=== PATIENT | male | born 1965 | race Caucasian/White ===

== ENCOUNTER 2021-01-15 06:32 | Observation (INO) ==
--- NOTE | 2020-12-18 13:22 | PAT Medication Instructions ---
Medication Instructions Date of Service December 18, 2020 Home Medications Medication Instructions Recorded 3-in-1 Commode #1 ea 12/14/20 Wheeled Walker #1 ea 12/14/20 atorvastatin 40 mg tablet 40 mg PO QAM ibuprofen 200 mg capsule 1,200 mg PO QAM linagliptin 5 mg tablet 5 mg PO QAM lisinopril 10 mg tablet 10 mg PO QAM omeprazole 20 mg capsule,delayed release 20 mg PO DAILY PRN ASK your surgeon for instructions ibuprofen 200 mg capsule 1,200 mg PO QAM DO NOT take the morning of surgery linagliptin 5 mg tablet 5 mg PO QAM lisinopril 10 mg tablet 10 mg PO QAM Take morning of surgery With a small sip of water, OTHERWISE NOTHING TO EAT OR DRINK AFTER MIDNIGHT: atorvastatin 40 mg tablet 40 mg PO QAM omeprazole 20 mg capsule,delayed release 20 mg PO DAILY PRN (if needed) Other Notes If you have any questions please call us at [phone] or [phone] or [phone] or [phone]
--- NOTE | 2020-12-22 15:30 | Anesthesiology Consultation ---
Date of Service December 22, 2020 Assessment & Plan (1) Encounter for pre-operative examination: COVID Status: As of 12/22 assessment, patient denies travel to endemic area, known exposure/sick contacts, or symptoms of COVID19. Patient instructed that they and their household members must follow strict social distancing guidelines, wear a mask in public and avoid travel/events/gatherings for 14 days prior to surgery. Preoperative COVID19 testing to be completed prior to surgery per surgeon's arrangements (01/11). Patient made aware to self-isolate as much as possible between COVID testing and surgery. Patient states he is currently scheduled to work at his job between his Covid test and his surgery. He works indoors and outside with a variety of people and often he and others are not wearing masks. Also will ride in vehicles with coworkers without masks. Patient was encouraged to be off of work in order to be able to isolate properly after having his Covid test. He states he will probably be able to take PTO for that week and will try to arrange this. Advised patient that if he is unable to be off of work he needs to strictly mask and avoid contact with others when at all possible. MDA be advised AM DOS of above possible increased covid risk. Chart Review Chart Review: Acceptable Risk for Surgery and Patient seen in Pre Admission Testing Teaching & Discussion Instructed NPO after midnight before surgery, except medications with 15 cc of water. Medication instructions provided according to the PAT guidelines. History Surgery Operation Date: 01/15/21 11:10 Proposed Procedures p Right Total Hip Arthroplasty - Lenin Perez MD Height/Weight Height: 5 ft 5 in Weight: 88.4 kg Allergies Allergy/AdvReac Type Severity Reaction Status Date / Time No Known Allergies Allergy Verified 12/17/20 15:37 Medications Home Medications Medication Instructions Recorded Confirmed Last Taken 3-in-1 Commode #1 ea 12/14/20 12/14/20 Unknown Wheeled Walker #1 ea 12/14/20 12/14/20 Unknown atorvastatin 40 mg tablet 40 mg PO QAM 12/14/20 12/17/20 Unknown ibuprofen 200 mg capsule 1,200 mg PO QAM 12/14/20 12/17/20 Unknown linagliptin 5 mg tablet 5 mg PO QAM 12/14/20 12/17/20 Unknown lisinopril 10 mg tablet 10 mg PO QAM 12/14/20 12/17/20 Unknown omeprazole 20 mg capsule,delayed 20 mg PO DAILY PRN 12/14/20 12/17/20 Unknown release Past Medical History Medical History Arthritis of right hip Diabetes well controlled. GERD (gastroesophageal reflux disease) Controlled with PPI High cholesterol Hypertension Exercise / Class Metabolic Activity III < 4 Walking/Shop/Light housework Past Family History Family History Father Family history of diabetes mellitus Past Surgical History Surgical History History of appendectomy AGE 11 Past Anesthesia History No Hx of Anesthesia Complications and No Family Hx of Anesthesia Complications History of PONV No Hx of PONV and No Hx of Motion Sickness Social History Smoking Status: Never smoker Do You Dip or Chew Tobacco: Yes (1 CAN PER 2 DAYS -- PT MADE AWARE NO CHEW AM DOS) Hx Alcohol Use: Yes Alcohol type: beer alcohol intake frequency: 3 or more drinks per day (lately has been 6 beers in evenings due to pain) Hx Substance Use: No Review of Systems Pt denies any recent chest pain, shortness of breath, palpitations, cough, fever, URI, or uncontrolled acid reflux. Physical Exam Vital Signs BP: 129/83 P: 87bpm SPO2: 98% RA T: 98.2 F R: 16 ENMT Mouth: + chipped teeth; no dental restorations and no loose teeth Thyromental Distance: < 3.5 Finger Breadths (3) Mallampati Class: II Neck neck extension not limited Respiratory normal respiratory effort, lungs clear to auscultation Cardiovascular RRR, no murmur, no edema Testing Laboratory Results 12/22/20 15:45 12/22/20 15:45 PT 10.6 Seconds (9.0-12.0) 12/22/20 15:45 INR 1.0 (0.9-1.1) 12/22/20 15:45 APTT 24.5 Seconds (21.0-31.0) 12/22/20 15:45 Electrocardiogram Date: 12/22/20 Findings: + NSR @ (69bpm) Chest X-Ray Date: 12/22/20 Findings: + NAD
--- NOTE | 2020-12-22 16:06 | XRay Report ---
XR chest Pre-admission PA/Lat HISTORY: 55 years-old Male pat preoperative exam. No acute chest complaints COMPARISON: None TECHNIQUE: PA and lateral views of the chest FINDINGS: Cardiomediastinal and hilar silhouettes are within normal limits. No pneumothorax, pleural effusion, airspace consolidation or overt pulmonary edema. Spondylitic spurring of the spine. IMPRESSION: No acute process. ACT 112: Negative or not required by law. The above report was generated using voice recognition software. It may contain grammatical, syntax o r spelling errors. Electronically signed by: Dwight Abbasi M.D. 12/22/2020 4:05 PM
[2020-12-22 16:23] LABS: Basophils # (auto) 0.02 K/uL (0-0.2); Basophils % (auto) 0.3 %; Eosinophils # (auto) 0.05 K/uL (0-0.5); Eosinophils % (auto) 0.7 %; Hematocrit (blood only) 44.4 % (42-52); Hemoglobin 15.8 g/dL (14.0-18.0); Immature Granulocytes # (auto) 0.02 K/uL (0.00-0.02); Immature Granulocytes % (auto) 0.3 %; Lymphocytes # (auto) 2.17 K/uL (1.2-3.4); Lymphocytes % (auto) 28.4 %; Mean Corpuscular Hemoglobin 31.7 pg (25-34); Mean Corpuscular Hgb Conc 35.6 g/dL (32-36); Mean Corpuscular Volume 89.2 fL (80-100); Mean Platelet Volume 10.4 fL (7.4-10.4); Monocytes # (auto) 0.65 K/uL (0.11-0.59); Monocytes % (auto) 8.5 %; Neutrophils # (auto) 4.73 K/uL (1.4-6.5); Neutrophils % (auto) 61.8 %; Platelet Count 205 K/uL (130-400); RDW Coefficient of Variation 12.8 % (11.5-14.5); RDW Standard Deviation 41.7 fL (36.4-46.3); Red Blood Count 4.98 M/uL (4.7-6.1); White Blood Count 7.64 K/uL (4.8-10.8)
[2020-12-22 16:57] LABS: Partial Thromboplastin Ratio 0.9; Partial Thromboplastin Time 24.5 Seconds (21.0-31.0); Prothrombin Time 10.6 Seconds (9.0-12.0)
--- NOTE | 2020-12-22 16:57 | Electrocardiogram Report ---
Test Reason : Blood Pressure : / mmHG Vent. Rate : 069 BPM Atrial Rate : 069 BPM P-R Int : 162 ms QRS Dur : 082 ms QT Int : 392 ms P-R-T Axes : 050 007 -03 degrees QTc Int : 420 ms Normal sinus rhythm Normal ECG No previous ECGs available Confirmed by Giovany Rivas ([id number]) on 12/22/2020 4:57:01 PM Referred By: Lenin Perez Confirmed By:James Rivas
[2020-12-22 16:59] LABS: BUN Creatinine Ratio 22.8 (10-20); Calcium 9.1 mg/dl (8.5-10.1); Creatinine Clr Calc Pharmacy 101.6 ml/min; Est GFR (Non-African American) 98.4; Potassium 4.4 mmol/L (3.5-5.1)
--- NOTE | 2021-01-09 11:50 | History and Physical Report ---
DATE OF ADMISSION: 01/15/2021 CHIEF COMPLAINT: Right hip pain. HISTORY OF PRESENT ILLNESS: The patient is a 55-year-old gentleman who works in [employer] who presents for surgical treatment of his right hip. He has about a 2-3 year history of significantly increasing right hip pain and discomfort. He has been through extensive conservative treatment in the past, mostly consists of medicine dose. This has become less successful. He has been through a course of therapy, which did not help at all and if anything made things worse. He takes medicines with minimal relief. 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 By midday, he has difficulty walking at all. He would like to have his hip replaced. PAST MEDICAL HISTORY: 1. Diabetes. 2. Hypertension. 3. Elevated cholesterol. 4. Gastroesophageal reflux disease. PAST SURGICAL HISTORY: Include appendectomy. ALLERGIES: None. CURRENT MEDICINES: 1. Lisinopril 10 mg. 2. Tradjenta 5 mg a day. 3. Atorvastatin 40 mg. 4. Prilosec 20 mg. 5. Ibuprofen 6 pills a day. SOCIAL HISTORY: Significant for 55-year-old male. He is from [facility]. He is . One drink per week. He does chew snuff. He works [employer]. FAMILY HISTORY: Significant for diabetes. REVIEW OF SYSTEMS: Significant for diabetes. Denies any chest pain or shortness of breath. No history of DVT or PE. No known bleeding problems. PHYSICAL EXAMINATION GENERAL: Shows a pleasant, healthy appearing, middle-aged male. HEENT: Benign. NECK: Supple, no lymphadenopathy. LUNGS: Clear to auscultation. HEART: Has a regular rate and rhythm. ABDOMEN: Soft, nontender, nondistended. EXTREMITIES: Grossly neurovascularly intact except as follows. Examination of the right hip reveals the patient walks with markedly antalgic gait. He limps on this right side. He is about 0.5 cm short on the right side compared to left. He has a very stiff hip with internal rotation of -10. This recreates his pain. No knee effusion. Negative straight leg raise. X-RAYS: X-rays of the right hip were reviewed. It shows advanced right hip DJD. He has complete loss of the superior joint space. He has got [id number] disease. He has got Cam type impingement. He has got osteophytes around the acetabulum. He has got cystic and flattening changes of the femoral head. 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 He has failed conservative treatment and would like to have his right hip replaced. PLAN: We will take him to the operating room and do a right total hip replacement. The risks and benefits of this procedure were explained to the patient including but not limited to DVT, PE, , infection, neurological injury, vascular injury, bleeding problem, pain, limited range of motion, stiffness, failure to relieve symptoms, incomplete relief of symptoms, need for further surgery in future, fracture, leg length inequality, nerve palsy, and need for revision surgery. He is aware that at his young age, he may need this revised at some point in the future. We talked about holding his ibuprofen 10 days preop. He is planning to be discharged to home with [facility] program.
[~2021-01-15 06:32] MED LIST: ACETAMINOPHEN 500 MG TAB PO SCH; FAMOTIDINE 20 MG TAB PO SCH; GABAPENTIN 600 MG DOSE PO SCH; LR 500ML BOLUS, THEN 15ML/HR IV SCH; LR 60ML/HR IV SCH; METOCLOPRAMIDE HCL 10 MG TABLET PO SCH; Scopolamine 1 MG TDSY TD SCH; TRANEXAMIC ACID 1,000 MG **IV Pre-op IV SCH; ceFAZolin 2000MG 2,000 MG/15 ML SYR IV SCH
[2021-01-15] MEDS ORDERED: MIDAZOLAM HCL 1 MG/ML 2ML VIAL ONE ×2 (06:43→09:16)
[2021-01-15] MEDS ORDERED: fentaNYL citrate 100 MCG/2 ML VIAL ONE (06:43)
[2021-01-15] MEDS ORDERED: MoRPHine SULFATE PF 1 MG/ML 10 ML AMP/VIAL ONE (06:44)
--- NOTE | 2021-01-15 06:56 | History & Physical Bridge Note ---
Date of Service January 15, 2021 History & Physical Bridge Note I have examined the patient, reviewed the History & Physical and in the interval since the performance of the History & Physical I have noted the following changes of clinical significance: no changes noted
[2021-01-15] MEDS ORDERED: BUPIVACAINE 0.5 % 5 MG/1 ML PF 10ML VIAL ONE (07:29)
[2021-01-15] MEDS ORDERED: BUPIVACAINE/EPINEPHRINE 0.5% MPF 1:200,000 30 ML VIAL ONE (08:47)
[2021-01-15] MEDS ORDERED: BACITRACIN INJ 50,000 UNIT VIAL ONE (08:47)
[2021-01-15] MEDS ORDERED: NALOXONE HCL 0.4 MG/1 ML VIAL/CARP IV PRN ×2 (09:03→11:24)
[2021-01-15] MEDS ORDERED: diphenhydrAMINE 50 MG/ML VIAL IV PRN (09:03)
[2021-01-15] MEDS ORDERED: MEPERIDINE HCL 25 MG/ML CARP/VIAL IV PRN (09:03)
[2021-01-15] MEDS ORDERED: NALOXONE HCL 0.08 MG in SYRINGE 1.8 ML IV PRN (09:03)
[2021-01-15] MEDS ORDERED: NALOXONE HCL 1 MG in SODIUM CHLORIDE 0.9% 1000ML 1,000 ML IV PRN (09:03)
[2021-01-15] MEDS ORDERED: LACTATED RINGER'S 500 ML IV PRN (09:03)
[2021-01-15] MEDS ORDERED: KETOROLAC 30 MG/ML VIAL IV PRN (09:03)
[2021-01-15] MEDS ORDERED: MoRPHine SULFATE PF 1 MG/ML 10 ML AMP/VIAL INT SPINAL ONE (09:03)
[2021-01-15] MEDS ORDERED: ePHEDrine sulfate 50 MG/ML AMP IV PRN (09:03)
[2021-01-15] MEDS ORDERED: MoRPHine SULFATE 2 MG/ML CARP IV PRN (09:03)
[2021-01-15] MEDS ORDERED: HYDROmorphone INJ 0.5 MG/0.5 ML SYR IV PRN ×2 (09:03→11:24)
[2021-01-15] MEDS ORDERED: SODIUM CHLORIDE 0.9% 1000ML 1,000 ML IV SCH (09:15)
[2021-01-15] MEDS ORDERED: NO NARCOTICS OR SEDATIVES SCH (09:15)
[2021-01-15] MEDS ORDERED: PROPOFOL IV EMULSION 10 MG/ML 20 ML VIAL IV ONE (09:16)
[2021-01-15] MEDS ORDERED: ONDANSETRON INJ 2 MG/ML 2 ML VIAL ONE (09:16)
[2021-01-15] MEDS ORDERED: PHENYLEPHRINE 100MCG/ML 5ML SYR ONE (09:45)
[2021-01-15] MEDS ORDERED: PHENYLEPHRINE HCL 10 MG/ML VIAL ONE (09:45)
[2021-01-15] MEDS ORDERED: ePHEDrine sulfate 50 MG/ML SYR ONE (10:08)
--- NOTE | 2021-01-15 10:47 | Operative Report ---
Post Operative Report Pre & Post Diagnosis Operation Date: 01/15/21 08:50 Pre-Op Diagnosis: Right Hip Degenerative Joint Disease Post-Op Diagnosis: Right Hip Degenerative Joint Disease I identified the patient and participated in the time-out.: Yes Procedure Operation Date: 01/15/21 08:50 Actual Procedures p Right Total Hip Arthroplasty(Right) - Lenin Perez MD Surgeon Lenin Perez MD Field Hockey Coach MIKE Barcenas Estimated Blood Loss 200 Findings Consistent with Post-Op Diagnosis Operative findings were advanced right hip DJD. Extensive grade 4 bone and deep bone disease the femoral head and acetabulum. He had a large medial acetabular osteophyte. He did have some anterior acetabular wall deficiency. Moderate- sized joint effusion. Very stiff hip with an external rotation contracture of 10 degrees or so. Fluids 1200 cc Specimens Right femoral head sent for pathology. Drains None. 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 Became pretty incapacitating is having difficulty in the get through his workday due to pain. X-rays were advanced right hip arthritis. He failed all conservative measures and elected proceed with total hip arthroplasty. Description of Procedure Operative implants consisted of: 1 Biomet G7 size 56 mm acetabular shell. 2. [place] hole dyehouse worker. 3. 6.5 cancellous acetabular screws 1 of 35 mm length 125 mm length. 4. Highly cross-linked polyethylene liner with a 56 mm outer diameter 36 mm diameter. 5. DePuy Corail size 10 KLA femoral stem. 6. +5/36 mm ceramic articular ball. The patient was taken to the operating identified and placed on the operating table supine position but all contact areas were properly padded. IV antibiotics tried by anesthesia team.Navarrete catheter was placed in sterile fashion. A spinal anesthetic had been implemented holding area. The patient was then placed in the left lateral decubitus position. An axillary roll was placed. A Stulberg hip positioner was used for positioning. All contact areas were meticulously padded and the right hip and leg were then prepped and draped in usual sterile fashion. A posterior lateral approach of the right hip was then performed to a curvilinear incision centered over the greater trochanter. Sharp dissection was got through subcutaneous tissue down to level the IT band gluteal fascia the IT band gluteal fascia incised longitudinally in line with skin incision. The underlying greater bursa was excised. The piriformis and external rotators were tagged and taken off the posterior aspect hip joint capsule. Great care was taken throughout the procedure to protect the sciatic nerve at all times. Posterior capsulotomy was then performed leaving a large flap for later repair. Hip was internally rotated and dislocated. A femoral neck osteotomy cut was made with Final Cut 10 mm above the lesser trochanter. Femoral head was removed and sent for pathology. The femur was retracted anteriorly. Attention drawn the acetabulum. The acetabular labrum was excised. The pulmonary fat was excised. He had a fairly large medial osteophyte which I had to remove in order to assess the depth of the acetabulum. I then began reaming up with a 45 mm reamer progressing up to a 55. I did reamed a little bit with a 56 reamer. A 56 mm Biomet acetabular shell was then placed in about 40 degrees lateral opening and 20 degrees of anteversion. Was fixed with two 6.5 cancellous acetabular screws. Trial liner was placed. Attention drawn the femur. The proximal femur was entered with a cookie-cutter followed by canal finder. I then broached begin the size 8 and progressing up to 10. He had excellent cancellous envelope and was fairly tight. We elect to stop there. Calcar reamer was used smooth and off the calcar. I then trialed the hip. The +5/36 mm articular ball provide full stability in full extension and external rotation and flexion to 9 degrees internal rotation over 50 degrees. Leg lengths seemed appropriate. Soft tissue tension seemed appropriate. I elect to place these implants. All trial implants were removed. An apex hole dyehouse worker was placed. Highly cross-linked polyethylene liner was placed. A DePuy size 10 KLA femoral stem was impacted in position. +5/36 mm ceramic articular ball was placed. Hip was located once again found to be stable. Attention drawn toward closing. The wounds irrigated scope soft pulsatile lavage solution. I did inject locally with 60 cc of absent Marcaine with epinephrine. Patient did receive 1 g tranexamic acid. The wounds once again irrigated. Posterior capsule and external rotators were then repaired through drill holes in the posterior trochanter with #2 Tycron suture. The IT band gluteal fascia then closed in 1 PDS suture in running fashion for the subcutaneous tissues were closed with 2 layers with a deep layer #1 Vicryl suture and subcutaneous tissues with 2-0 Dexon suture in a buried interrupted fashion. Skin was closed skin maria isabel. Legs then cleaned dried a sterile dressing composed Xeroform, 4 x 4's, sterile ABD pad, foam tape was applied. Patient then transferred to the recovery room in stable condition. Patient tolerated the procedure well and there were no complications. Lee Barcenas, my physician anesthesiologist assistant, was present for the entire procedure. His assistance was essential and required for appropriate patient positioning, prepping and draping, surgical exposure, performing the technical details of the operation, placement the implants, closure of the wound, and placement of the sterile bandage. I attest to the content of the Intraoperative Record and any orders documented therein. Any exceptions are noted below.
--- NOTE | 2021-01-15 11:01 | XRay Report ---
AP PELVIS, CROSSTABLE LATERAL RIGHT HIP History: Right total hip arthroplasty. Degenerative arthritis. Postop. FINDINGS: The patient is status post a right total hip arthroplasty. The hardware is intact. No fract ure or dislocation. Skin maria isabel are in place. IMPRESSION: Right total hip arthroplasty. No evidence for hardware complication ACT 112: Negative or not required by law. Electronically signed by: Blake Phelps M.D. 01/15/2021 11:00 AM
[2021-01-15] MEDS ORDERED: ALUMINUM/MAGNESIUM SUSP 30 ML UDC PO PRN (11:24)
[2021-01-15] MEDS ORDERED: ONDANSETRON INJ 2 MG/ML 2 ML VIAL IV PRN (11:24)
[2021-01-15] MEDS ORDERED: DEXTROSE 50% 50 ML SYRINGE IV PRN (11:24)
[2021-01-15] MEDS ORDERED: traMADol HCL 50 MG TABLET PO PRN (11:24)
[2021-01-15] MEDS ORDERED: bisacodyL 10 MG SUPP PR PRN (11:24)
[2021-01-15] MEDS ORDERED: GLUCAGON FOR INJ 1 MG VIAL SQ PRN (11:24)
[2021-01-15] MEDS ORDERED: TAMSULOSIN HCL 0.4 MG CAP PO PRN (11:24)
[2021-01-15] MEDS ORDERED: diphenhydrAMINE Capsule 25 MG CAP PO PRN (11:24)
[2021-01-15] MEDS ORDERED: GLUCOSE 10 TABS/TUBE PO PRN (11:24)
[2021-01-15] MEDS ORDERED: GLUCOSE 40% GEL 15 GM TUBE PO PRN (11:24)
[2021-01-15] MEDS ORDERED: METOCLOPRAMIDE HCL INJ 5 MG/ML 2 ML VIAL IV PRN (11:24)
[2021-01-15] MEDS ORDERED: CARBOHYDRATES FOR HYPOGLYCEMIA PO PRN (11:24)
[2021-01-15] MEDS ORDERED: MAGNESIUM HYDROXIDE SUSP 30 ML UDC PO PRN (11:24)
[2021-01-15] MEDS ORDERED: PANTOprazole 40 MG TAB PO PRN (11:32)
[2021-01-15] MEDS ORDERED: PHARMACY GLYCEMIC MGMT CONSULT PRN (11:39)
--- NOTE | 2021-01-15 12:11 | Anesthesiology Progress Note ---
Date of Service January 15, 2021 Anesthesia Post Procedure Vital Signs Vital Signs: Temp Pulse Pulse Resp BP BP Pulse Ox 01/15/21 11:55 36.6 C 63 16 132/86 93 01/15/21 11:20 36.7 C 72 16 135/84 94 01/15/21 11:10 81 14 112/87 96 01/15/21 11:00 36.8 C 79 17 122/88 95 01/15/21 10:50 78 18 142/93 H 100 01/15/21 10:40 75 16 121/68 100 01/15/21 10:33 37.1 C 90 18 135/80 100 01/15/21 07:10 36.9 C 83 18 156/94 H 97 Pain Intensity Right Hip: Pain Intensity: 3 Transfer of Care Handoff Completed per policy Notes Mental Status: alert / awake / arousable and participated in evaluation Patient Amnestic to Procedure: Yes Nausea / Vomiting: adequately controlled Pain: adequately controlled Airway Patency, RR, SpO2: stable & adequate BP & HR: stable & adequate Hydration State: stable & adequate Anesthetic Complications: no major complications apparent
[2021-01-15] MEDS ORDERED: INSULIN GLARGINE SOLOSTAR 100 UNITS/ML 3 ML PEN SC ONE (13:00)
[2021-01-15] MEDS: SODIUM CHLORIDE 0.9% 1000ML 1,000 ML IV SCH ×2 (13:00→20:49)
[2021-01-15] MEDS: INSULIN ASPART 100 UNITS/ML 3 ML PEN SC SCH ×3 (13:03→20:51)
--- NOTE | 2021-01-15 13:09 | Pharmacy Report ---
Pharmacy Glycemic Short Note 2 - Date of Service January 15, 2021 - Glycemic Short BSG Results (Last 24 hours): 01/15/21 01/15/21 01/15/21 06:50 10:37 12:28 POC Glucose 206 H 188 H 176 H OUTPATIENT ANTIDIABETIC REGIMEN: * Tradjenta 5 mg PO daily ASSESSMENT: * 55 y/o M admitted for R total hip replacement surgery. Patient with history of Type 2 diabetes managed at home on oral Linagliptin therapy. * Holding oral anti-diabetic med on admission and will use SQ basal/bolus insulin for managing diabetes while in-patient. * Oral agents are not recommended for inpatient use d/t drug interactions, changing PO intake, and difficulty titrating for acute hyper/hypoglycemia. ADA recommends re-initiating outpatient oral agents 1-2 days prior to discharge if/when appropriate if they were held on admission. * Will initiate weight based insulin dosing for insulin carole patient and titrate based on BSG trends. * Based on fasting BSG of 206 mg/dl this AM, basal Lantus was ordered post op today using wt based, stress between 1 and 2. * Novolog parameters ordered based on wt and stress of 2. * Patient did not receive steroids today with surgery, but is ordered one time dose of oral Dexamethasone tomorrow morning. * Will re-assess basal and bolus dose tomorrow morning to try to prevent steroid-induced hyperglycemia. PLAN FOR INPATIENT GLYCEMIC CONTROL: * Hold outpatient oral diabetes medications * Basal insulin * Lantus 10 units SQ x1 today * Bolus insulin * NovoLog per scale ACHS or Q6hrs while NPO * Goal Range: Low 110 mg/dL - High 140 mg/dL * Correction Factor: 25 mg/dL/unit * Nutritional / Prandial insulin per carb ratio of 1 unit per 9 grams CHO consumed PLAN FOR DISCHARGE: * TBD
[2021-01-15] MEDS: ONDANSETRON INJ 2 MG/ML 2 ML VIAL IV PRN ×2 (14:34→19:42)
[2021-01-15] MEDS: ACETAMINOPHEN 500 MG TAB PO SCH ×2 (14:45→20:48)
[2021-01-15] MEDS: ceFAZolin 2000MG 2,000 MG/15 ML SYR IV SCH ×2 (15:29→23:55)
[2021-01-15] MEDS: Scopolamine CHECK PATCH PLACEMENT SCH ×2 (15:29→20:48)
[2021-01-15] MEDS ORDERED: TRANEXAMIC ACID / 0.7% NACL 1,000 MG/100 ML BAG IV SCH (16:30)
[2021-01-15] MEDS: ASCORBIC ACID 500 MG TAB PO SCH (17:55)
[2021-01-15] MEDS: ASPIRIN 81 MG ECTAB PO SCH (20:48)
[2021-01-15] MEDS: DOCUSATE SODIUM 100 MG CAP PO SCH (20:48)
[2021-01-15] MEDS ORDERED: SENNA 8.6 MG TAB PO SCH (21:00)
[2021-01-16] MEDS ORDERED: INSULIN ASPART 100 UNITS/ML 3 ML PEN SC ONE (02:00)
[2021-01-16] MEDS ORDERED: DC INTRASPINAL MORPHINE SCH (03:03)
[2021-01-16] MEDS: KETOROLAC 30 MG/ML VIAL IV SCH ×2 (05:13→08:48)
[2021-01-16] MEDS: ACETAMINOPHEN 500 MG TAB PO SCH (05:13)
[2021-01-16 06:14] LABS: Basophils # (auto) 0.01 K/uL (0-0.2); Basophils % (auto) 0.1 %; Eosinophils # (auto) 0.01 K/uL (0-0.5); Eosinophils % (auto) 0.1 %; Hematocrit (blood only) 37.1 % (42-52); Immature Granulocytes # (auto) 0.02 K/uL (0.00-0.02); Immature Granulocytes % (auto) 0.2 %; Lymphocytes # (auto) 1.26 K/uL (1.2-3.4); Lymphocytes % (auto) 14.3 %; Mean Corpuscular Hemoglobin 31.3 pg (25-34); Mean Corpuscular Volume 89.2 fL (80-100); Mean Platelet Volume 10.2 fL (7.4-10.4); Monocytes # (auto) 1.19 K/uL (0.11-0.59); Monocytes % (auto) 13.5 %; Neutrophils # (auto) 6.34 K/uL (1.4-6.5); Neutrophils % (auto) 71.8 %; Platelet Count 213 K/uL (130-400); RDW Coefficient of Variation 13.3 % (11.5-14.5); RDW Standard Deviation 43.5 fL (36.4-46.3); Red Blood Count 4.16 M/uL (4.7-6.1); White Blood Count 8.83 K/uL (4.8-10.8)
[2021-01-16 06:31] LABS: BUN Creatinine Ratio 26.5 (10-20); Calcium 8.3 mg/dl (8.5-10.1); Creatinine Clr Calc Pharmacy 65.7 ml/min; Est GFR (African American) 72.7; Est GFR (Non-African American) 62.7; Potassium 4.4 mmol/L (3.5-5.1)
[2021-01-16] MEDS: ASPIRIN 81 MG ECTAB PO SCH (07:24)
[2021-01-16] MEDS: DOCUSATE SODIUM 100 MG CAP PO SCH (07:24)
[2021-01-16] MEDS: ASCORBIC ACID 500 MG TAB PO SCH (07:24)
[2021-01-16] MEDS: Scopolamine CHECK PATCH PLACEMENT SCH (07:25)
[2021-01-16 07:27] LABS: Estimated Average Glucose 186 mg/dl; Hemoglobin A1C 8.1 % (4.5-5.6)
[2021-01-16] MEDS ORDERED: dexAMETHasone 4 MG TAB PO SCH (08:00)
[2021-01-16] MEDS: INSULIN ASPART 100 UNITS/ML 3 ML PEN SC SCH (08:52)
[2021-01-16] MEDS ORDERED: MULTIVITAMIN TAB PO SCH (09:00)
[2021-01-16] MEDS ORDERED: NovoLIN-N (NPH) PER UNIT CHARGE SQ ONE (09:00)
[2021-01-16] MEDS ORDERED: NON-FORMULARY MEDICATION (Linagliptin [Tradjenta] 5 mg tablet) PO SCH (09:00)
[2021-01-16] MEDS ORDERED: ATORVASTATIN 40 MG TAB PO SCH (09:00)
[2021-01-16] MEDS ORDERED: INSULIN GLARGINE SOLOSTAR 100 UNITS/ML 3 ML PEN SC SCH (09:00)
[2021-01-16] MEDS ORDERED: lisinopril 10 MG TAB PO SCH (09:00)
--- NOTE | 2021-01-16 10:29 | Progress Notes ---
DATE: 01/16/2021 SUBJECTIVE: A 55-year-old gentleman postop day 1 from right hip replacement. He is doing well. Pain is controlled. He is getting around reasonably well. No chest pain or shortness of breath. Not feeling dizzy or lightheaded. OBJECTIVE: VITAL SIGNS: Temperature 36.6. Vital signs stable. GENERAL: Shows a pleasant, middle-aged male. He is sitting up in his bedside chair, looks comfortable. EXTREMITIES: Examination of the right hip and leg reveals the dressing to be clean, dry and intact. Thigh is soft and supple. Hip is located. He is neurologically intact. He can dorsiflex and plantarflex his foot appropriately. LABORATORY DATA: Hemoglobin 13.0. Hematocrit 37.1. Electrolytes are stable. ASSESSMENT: A 55-year-old gentleman postop day 1 from right hip replacement, doing pretty well. Pain is controlled. Hip is located. He is neurologically intact. PLAN: 1. DVT prophylaxis including thigh-high TEDs, SCDs, and aspirin twice a day. 2. PT/OT. Weight bear as tolerated. Right total hip protocol. 3. Pain control, doing well with current pain regimen. 4. Disposition: Plan to discharge to home with some home health if does okay in therapy today.
--- NOTE | 2021-01-21 06:51 | Discharge Summary ---
Date of Service January 21, 2021 Discharge Data Procedures Performed Operation Date: 01/15/21 08:50 Actual Procedures p Right Total Hip Arthroplasty(Right) - Lenin Perez MD Hospital Course (1) Status post total replacement of right hip: This patient is a 55 year old male admitted on 01/15/21 and underwent total hip arthroplasty. He tolerated the procedure well and there were no complications. Transferred to the PACU post op and later to the orthopedic floor for further care. He was given ancef for antibiotic prophylaxis. He was also given PORFIRIO stockings, SCDs, and aspirin for DVT prophylaxis. Hemoglobin, hematocrit, and vital signs were monitored during his hospital stay and remained stable. Did not require any blood transfusions. There were no complications duri ng his hospital stay. By post op day #1 the patient was tolerating a diabetic diet, pain was reasonably controlled with oral pain medicine, and he was participating in physical therapy. On post op day #1 the patient was discharged home and set up with home health care. He was given printed discharge instructions including prescriptions for extra strength tylenol, aspirin, and tramadol. Continue physical therapy, weight bearing as tolerated. Continue hip precautions. Continue PORFIRIO stockings. Follow up approximately 2 weeks post op or sooner if there are problems or concerns. Coding Level of Care Code None Diagnoses Status post total replacement of right hip Z96.641
== END 2021-01-16 12:08 | disposition home health service (06) ==
LOC: 3E 06:32 → ASU 06:32